=== PATIENT | male | born 1960 | race Caucasian/White ===

== ENCOUNTER 2022-05-03 00:05 | Inpatient (IN) ==
[2022-05-03 01:37] LABS: Corrected Retic Count 1.3 % (0.5-1.5); Hematocrit for Retic CNT 43 % (42-52); Immature Retic Fraction 0.42; RBC Retic Count 4.76 10^6/uL (4.18-5.48)
[2022-05-03 01:47] LABS: ABS Basophils 0.1 10^3/ul (0-0.2); ABS Eosinophils 0.6 10^3/ul (0-0.6); ABS Lymphocytes 2.4 10^3/ul (1.0-4.8); ABS Monocytes 1.1 10^3/ul (0-0.8); ABS Neutrophils 4.2 10^3/ul (1.5-7.7); Eosinophil % 7.4 %; Hematocrit 43 % (42-52); Hemoglobin 14.4 g/dL (14.0-18.0); Lymphocyte % 28.5 %; Mean Corpuscular HGB Conc 33 g/dL (31-36); Mean Corpuscular Hemoglobin 30 pg (27-31); Mean Corpuscular Volume 90 fL (80-94); Mean Platelet Volume 11.8 fL (7.4-10.4); Platelet Count 5 10^3/uL (150-450); Red Blood Count 4.84 10^6 /uL (4.18-5.48); Red Cell Distribution Width 15 % (10-15); White Blood Count 8.4 10^3/uL (3.5-10.8)
[2022-05-03 01:57] LABS: Activated Partial Thrombo Time 23.5 seconds (26.0-38.0); Fibrinogen 438.4 mg/dL (110.8-404.3); INR 1.18 (0.86-1.15)
[2022-05-03 02:40] LABS: Albumin 4.2 g/dL (3.2-5.2); Albumin/Globulin Ratio 1.6 (1-3); Direct Bilirubin 0.1 mg/dL (0.03-0.18); Globulin 2.7 g/dL (2-4); Indirect Bilirubin 0.4 mg/dL (0.3-1.0); Total Bilirubin 0.5 mg/dL (0.2-1.0); Total Protein 6.9 g/dL (6.4-8.9)
[2022-05-03 02:41] LABS: ALT 13 U/L (7-52); Albumin 3.9 g/dL (3.2-5.2); Albumin/Globulin Ratio 1.4 (1-3); Alkaline Phosphatase 98 U/L (35-149); Blood Urea Nitrogen 21 mg/dL (6-24); CO2 Carbon Dioxide 26 mmol/L (22-32); Calcium 8.7 mg/dL (8.6-10.3); Chloride 104 mmol/L (101-111); Globulin 2.7 g/dL (2-4); Glucose 92 mg/dL (70-100); Sodium 135 mmol/L (135-145); Total Protein 6.6 g/dL (6.4-8.9); eGFR CKD-EPI 59.7 (>60)
[2022-05-03] MEDS ORDERED: methylPREDNISolone SOD SUCC 125 mg 2 ML VIAL IV ONE (02:41)
[2022-05-03] MEDS ORDERED: Dexamethasone IV 4 MG/ML 5 ML VIAL (20 MG) IVPB ONE (02:50)
[2022-05-03 02:57] LABS: Anion Gap 5 mmol/L (2-11)
[2022-05-03] MEDS ORDERED: Immune Globulin IV Order (CPOE ENTRY PROTOCOL) IV SCH (03:00)
[2022-05-03] MEDS ORDERED: IMMUNE GLOB IV ONE (03:30)
[2022-05-03] MEDS ORDERED: PRIVIGEN IV ONE (03:30)
[2022-05-03 03:49] LABS: Urine Appearance Clear; Urine Bacteria Absent (Absent); Urine Bilirubin Negative (Negative); Urine Blood 1+ (Negative); Urine Color Straw; Urine Glucose Negative (Negative); Urine Ketones Negative (Negative); Urine Nitrite Negative (Negative); Urine Protein Negative (Negative); Urine Red Blood Cell Trace(0-2/hpf) (Absent); Urine Specific Gravity 1.004 (1.002-1.030); Urine Squamous Epithelial Cell Present (Absent); Urine Urobilinogen Negative (Negative); Urine White Blood Cell Trace(0-5/hpf) (Absent)
[2022-05-03 04:24] LABS: Potassium Redraw 3.9 mmol/L (3.5-5.0)
[2022-05-03 06:25] LABS: INR 1.15 (0.86-1.15)
[2022-05-03 06:50] LABS: ABS Eosinophils 0.1 10^3/ul (0-0.6); ABS Lymphocytes 0.9 10^3/ul (1.0-4.8); ABS Monocytes 0.2 10^3/ul (0-0.8); ABS Neutrophils 7.1 10^3/ul (1.5-7.7); Eosinophil % 1.3 %; Hematocrit 42 % (42-52); Hemoglobin 14.6 g/dL (14.0-18.0); Lymphocyte % 10.6 %; Mean Corpuscular HGB Conc 35 g/dL (31-36); Mean Corpuscular Hemoglobin 31 pg (27-31); Mean Corpuscular Volume 89 fL (80-94); Mean Platelet Volume 11.6 fL (7.4-10.4); Platelet Count 4 10^3/uL (150-450); Red Blood Count 4.75 10^6 /uL (4.18-5.48); Red Cell Distribution Width 15 % (10-15); White Blood Count 8.3 10^3/uL (3.5-10.8)
[2022-05-03 06:59] LABS: Albumin/Globulin Ratio 1.3 (1-3); Potassium 4.2 mmol/L (3.5-5.0); Total Bilirubin 0.5 mg/dL (0.2-1.0); eGFR CKD-EPI 59.2 (>60)
[2022-05-03 10:58] LABS: Hematocrit 43 % (42-52); Hemoglobin 14.2 g/dL (14.0-18.0)
[2022-05-03] MEDS ORDERED: methylPREDNISolone SOD SUCC 125 mg 2 ML VIAL IV PRN (12:10)
[2022-05-03] MEDS ORDERED: Famotidine IV 10 MG/ML 2 ml VIAL (20 mg) IV ONE (13:00)
[2022-05-03] MEDS ORDERED: NS 0.9% IVPB ONE ×3 (13:00→13:30)
[2022-05-03] MEDS ORDERED: RITUXIMAB IVPB ONE (13:00)
[2022-05-03] MEDS ORDERED: RITUXIMAB ABBS IVPB ONE ×2 (13:30)
[2022-05-04] MEDS ORDERED: Dexamethasone IV 4 MG/ML VIAL 1 ml VIAL IV SLOW PU SCH (09:00)
[2022-05-04] MEDS ORDERED: Dexamethasone IV 40 MG in NS 0.9% 50 ML 50 ML IVPB SCH (09:00)
[2022-05-04 10:36] LABS: ABS Basophils 0.1 10^3/ul (0-0.2); ABS Eosinophils 0.1 10^3/ul (0-0.6); ABS Lymphocytes 0.8 10^3/ul (1.0-4.8); ABS Neutrophils 17.1 10^3/ul (1.5-7.7); Eosinophil % 0.5 %; Hematocrit 38 % (42-52); Hemoglobin 12.4 g/dL (14.0-18.0); Lymphocyte % 4.3 %; Mean Corpuscular HGB Conc 33 g/dL (31-36); Mean Corpuscular Hemoglobin 29 pg (27-31); Mean Corpuscular Volume 89 fL (80-94); Mean Platelet Volume 10.7 fL (7.4-10.4); Nucleated Red Blood Cells % 0.1; Platelet Count 80 10^3/uL (150-450); Red Blood Count 4.23 10^6 /uL (4.18-5.48); Red Cell Distribution Width 14 % (10-15); White Blood Count 19.1 10^3/uL (3.5-10.8)
[2022-05-04 11:54] VITALS: BP 125/62
== END 2022-05-04 14:30 | disposition home or self-care (01) | DRG 661 ==
LOC: ED 00:05 → EDHOLD 04:14 → MED 11:10
PROVIDERS: ADMIT Hospitalist; ATTEND Internal Medicine Hematology & Oncology